=== PATIENT | male | born 1975 | race Caucasian/White ===

== ENCOUNTER → 2016-09-12 | Outpatient (CLI) | payer OTHER ==
--- NOTE | 2016-09-12 12:50 | XR ---
EXAMINATION TYPE: XR knee limited bilateral DATE OF EXAM ORDERED: 09/12/2016 HISTORY: M25.561, M25.562 bilateral knee pain. COMPARISON: Previous study of the right knee dated 10/01/2014. FINDINGS: There are remodeling changes in all 3 compartments of both knees. There is mild medial harshad nt space loss present bilaterally. There is some chondrocalcinosis present on the right. No definite joint effusion is seen. Loose body in the suprapatellar bursa on the right has enlarged slightly from 2.36 cm to 2.7 cm. IMPRESSION: 1. OSTEOARTHRITIS. 2. PROBABLE LOOSE BODY IN THE SUPRAPATELLAR BURSA ON THE RIGHT.
== END | disposition home or self-care (01) ==
LOC: RADXRMAIN 11:35
PROVIDERS: ATTEND Family Medicine
DX: M17.0 Bilateral primary osteoarthritis of knee (principal)

== ENCOUNTER → 2017-04-16 | Outpatient (CLI) | payer OTHER ==
--- NOTE | 2017-04-16 12:03 | XR ---
EXAMINATION TYPE: XR chest 2V DATE OF EXAM: 04/16/2017 COMPARISON: NONE HISTORY: Anxiety attack. History of asthma. Chest pain. TECHNIQUE: Frontal and lateral views of the chest are obtained. FINDINGS: There is no focal air space opacity, pleural effusion, or pneumothorax seen. The cardiac silhouette size is within normal limits. The osseous structures are intact. IMPRESSION: No acute cardiopulmonary process.
== END | disposition home or self-care (01) ==
LOC: RADMRIMAIN 11:31
PROVIDERS: ATTEND Family Medicine
DX: R06.02 Shortness of breath (principal); M19.90 Unspecified osteoarthritis, unspecified site
CPT/HCPCS: 71046

== ENCOUNTER 2018-06-01 14:12 | Emergency (ER) | payer MEDICARE, OTHER ==
[2018-06-01 15:06] VITALS: BP 149/85; RESP 18; TEMP 98.4
[2018-06-01] MEDS ORDERED: MECLIZINE 25 MG TAB PO STA (15:24)
[2018-06-01] MEDS ORDERED: DIAZEPAM 5 MG/ML 2 ML INJ IVP STA (15:24)
[2018-06-01] MEDS ORDERED: ONDANSETRON 4 MG/2 ML VIAL IVP STA (15:25)
--- NOTE | 2018-06-01 16:00 | ED ---
General Adult HPI - General Source: EMS, RN notes reviewed Mode of arrival: EMS Limitations: physical limitation <Tk Patel - Last Filed: 06/01/18 17:02> <Javi Pfeiffer - Last Filed: 06/01/18 19:24> - General Chief complaint: Dizziness Stated complaint: Dizziness Time Seen by Provider: 06/01/18 14:15 - History of Present Illness Initial comments: This is a 43-year-old male who presents emergency department stating that he is very dizzy and the dizziness is made him nauseous and vomited times one. Patient states he was in the bathroom bent over to pull up his pants and when he did he stood up and everything was spinning. Patient states he has never had an episode like this before per patient states anytime he moves his head the dizziness is worse. Patient denies any ringing in his ears or any deafness. Patient denies any headache. Patient denies any focal numbness or weakness. Patient denies any visual disturbance speech. Patient denies any chest pain palpitations difficulty breathing shortness breath per patient denies any recent fever chills or cough per patient denies any recent upper respiratory infections. Patient denies any abdominal pain patient denies nausea vomiting diarrhea. Patient states he sits in bed still he is not as dizzy but if he moves his head he gets very dizzy and nauseated. (Tk Patel) - Related Data Home Medications Medication Instructions Recorded Confirmed Acetaminophen Tab [Tylenol Tab] 1,000 mg PO Q6HR 06/01/18 06/01/18 Cholecalciferol (Vitamin D3) 2,000 unit PO DAILY 06/01/18 06/01/18 [Vitamin D3] Levothyroxine Sodium [Synthroid] 88 mcg PO DAILY 06/01/18 06/01/18 Previous Rx's Medication Instructions Recorded Meclizine [Antivert] 25 mg PO TID #20 tab 06/01/18 Allergies Allergy/AdvReac Type Severity Reaction Status Date / Time No Known Allergies Allergy Verified 06/01/18 15:07 Review of Systems ROS Other: All systems not noted in ROS Statement are negative. <Tk Patel - Last Filed: 06/01/18 17:02> ROS Other: All systems not noted in ROS Statement are negative. <Javi Pfeiffer - Last Filed: 06/01/18 19:24> ROS Statement: Those systems with pertinent positive or pertinent negative responses have been documented in the HPI. 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 History of Any Multi-Drug Resistant Organisms: None Reported Past Surgical History: Joint Replacement, Orthopedic Surgery Additional Past Surgical History / Comment(s): hypothyroidism Past Psychological History: No Psychological Hx Reported Smoking Status: Never smoker Past Alcohol Use History: Occasional Past Drug Use History: None Reported <Tk Patel - Last Filed: 06/01/18 17:02> General Exam Limitations: physical limitation <Tk Patel - Last Filed: 06/01/18 17:02> <Javi Pfeiffer - Last Filed: 06/01/18 19:24> - General Exam Comments Initial Comments: GENERAL: Patient is well-developed and well-nourished. Patient is nontoxic and well- hydrated and is in moderate distress. ENT: Neck is soft and supple. No significant lymphadenopathy is noted. Oropharynx is clear. Moist mucous membranes. Neck has full range of motion without eliciting any pain. EYES: The sclera were anicteric and conjunctiva were pink and moist. Extraocular movements were intact and pupils were equal round and reactive to light. Eyelids were unremarkable. PULMONARY: Unlabored respirations. Good breath sounds bilaterally. No audible rales rhonchi or wheezing was noted. CARDIOVASCULAR: There is a regular rate and rhythm without any murmurs gallops or rubs. ABDOMEN: Soft and nontender with normal bowel sounds. No palpable organomegaly was noted. There is no palpable pulsatile mass. SKIN: Skin is clear with no lesions or rashes and otherwise unremarkable. NEUROLOGIC: Patient is alert and oriented x3. Cranial nerves II through XII are grossly intact. Motor and sensory are also intact. Normal speech, volume and content. Symmetrical smile. Cerebellar testing finger to nose bilaterally is normal MUSCULOSKELETAL: Normal extremities with adequate strength and full range of motion. No lower extremity swelling or edema. No calf tenderness. LYMPHATICS: No significant lymphadenopathy is noted PSYCHIATRIC: Normal psychiatric evaluation. (Tk Patel) Course <Tk Patel - Last Filed: 06/01/18 17:02> <Javi Pfeiffer - Last Filed: 06/01/18 19:24> Vital Signs 06/01/18 14:58 Temperature 98.4 F Pulse Rate 73 Respiratory 18 Rate Blood Pressure 149/85 O2 Sat by Pulse 99 Oximetry - Reevaluation(s) Reevaluation #1: 06/01/18 19:23 The patient was endorsed me by Dr. Patel is pending evaluation and response to Antivert. Patient is feeling much improved the presentation is consistent with benign positional vertigo outpatient we placed on appropriate medication is a follow-up with his doctor and return when necessary (Javi Pfeiffer) Medical Decision Making - Lab Data Result diagrams: 06/01/18 16:33 06/01/18 16:33 <Tk Patel - Last Filed: 06/01/18 17:02> - Lab Data Result diagrams: 06/01/18 16:33 06/01/18 16:33 <Javi Pfeiffer - Last Filed: 06/01/18 19:24> - Medical Decision Making EKG shows normal sinus rhythm at 70 bpm WI interval is on a 44 tresses 82 QT interval 34 QTC is 437. Patient's EKG shows no ST segment elevation or depression. Dr. Pfeiffer will take over the care of this patient at 5 PM (Tk Patel) - Lab Data Lab Results 06/01/18 06/01/18 06/01/18 Range/Units 16:33 16:33 16:33 WBC 11.2 H (3.8-10.6) k/uL RBC 5.49 (4.30-5.90) m/uL Hgb 15.1 (13.0-17.5) gm/dL Hct 48.9 (39.0-53.0) % MCV 89.1 (80.0-100.0) fL MCH 27.6 (25.0-35.0) pg MCHC 31.0 (31.0-37.0) g/dL RDW 15.1 (11.5-15.5) % Plt Count 186 (150-450) k/uL Neutrophils % 85 % Lymphocytes % 9 % Monocytes % 4 % Eosinophils % 1 % Basophils % 0 % Neutrophils # 9.6 H (1.3-7.7) k/uL Lymphocytes # 1.0 (1.0-4.8) k/uL Monocytes # 0.4 (0-1.0) k/uL Eosinophils # 0.1 (0-0.7) k/uL Basophils # 0.0 (0-0.2) k/uL Hypochromasia Slight PT 10.0 (9.0-12.0) sec INR 0.9 (<1.2) APTT 22.5 (22.0-30.0) sec Sodium 137 (137-145) mmol/L Potassium 4.7 (3.5-5.1) mmol/L Chloride 103 (98-107) mmol/L Carbon Dioxide 25 (22-30) mmol/L Anion Gap 9 mmol/L BUN 11 (9-20) mg/dL Creatinine 0.87 (0.66-1.25) mg/dL Est GFR (CKD-EPI)AfAm >90 (>60 ml/min/1.73 sqM) Est GFR (CKD-EPI)NonAf >90 (>60 ml/min/1.73 sqM) Glucose 203 H (74-99) mg/dL Calcium 8.9 (8.4-10.2) mg/dL Magnesium 2.1 (1.6-2.3) mg/dL Total Bilirubin 0.6 (0.2-1.3) mg/dL AST 25 (17-59) U/L ALT 41 (21-72) U/L Alkaline Phosphatase 110 (38-126) U/L Troponin I (0.000-0.034) ng/mL Total Protein 7.1 (6.3-8.2) g/dL Albumin 3.7 (3.5-5.0) g/dL 06/01/18 Range/Units 16:33 WBC (3.8-10.6) k/uL RBC (4.30-5.90) m/uL Hgb (13.0-17.5) gm/dL Hct (39.0-53.0) % MCV (80.0-100.0) fL MCH (25.0-35.0) pg MCHC (31.0-37.0) g/dL RDW (11.5-15.5) % Plt Count (150-450) k/uL Neutrophils % % Lymphocytes % % Monocytes % % Eosinophils % % Basophils % % Neutrophils # (1.3-7.7) k/uL Lymphocytes # (1.0-4.8) k/uL Monocytes # (0-1.0) k/uL Eosinophils # (0-0.7) k/uL Basophils # (0-0.2) k/uL Hypochromasia PT (9.0-12.0) sec INR (<1.2) APTT (22.0-30.0) sec Sodium (137-145) mmol/L Potassium (3.5-5.1) mmol/L Chloride (98-107) mmol/L Carbon Dioxide (22-30) mmol/L Anion Gap mmol/L BUN (9-20) mg/dL Creatinine (0.66-1.25) mg/dL Est GFR (CKD-EPI)AfAm (>60 ml/min/1.73 sqM) Est GFR (CKD-EPI)NonAf (>60 ml/min/1.73 sqM) Glucose (74-99) mg/dL Calcium (8.4-10.2) mg/dL Magnesium (1.6-2.3) mg/dL Total Bilirubin (0.2-1.3) mg/dL AST (17-59) U/L ALT (21-72) U/L Alkaline Phosphatase (38-126) U/L Troponin I <0.012 (0.000-0.034) ng/mL Total Protein (6.3-8.2) g/dL Albumin (3.5-5.0) g/dL Disposition <Tk Patel - Last Filed: 06/01/18 17:02> Is patient prescribed a controlled substance at d/c from ED?: No <Javi Pfeiffer - Last Filed: 06/01/18 19:24> Clinical Impression: Benign paroxysmal positional vertigo Disposition: HOME SELF-CARE Condition: Good Instructions (If sedation given, give patient instructions): Dizziness (ED), Benign Paroxysmal Positional Vertigo (ED) Prescriptions: Meclizine [Antivert] 25 mg PO TID #20 tab Referrals: Kevin Arceo DO [Primary Care Provider] - 1-2 days
--- NOTE | 2018-06-01 16:03 | XR ---
EXAMINATION TYPE: XR chest 2V DATE OF EXAM: 06/01/2018 COMPARISON: Chest radiograph 04/16/2017 HISTORY: Chest pain TECHNIQUE: Frontal and lateral views of the chest are obtained. FINDINGS: Exam is significantly limited secondary to patient body habitus. There is no focal air space opacity, pleural effusion, or pneumothorax seen. The cardiac silhouette size is within normal limits. The osseous structures are intact. IMPRESSION: Significantly limited exam secondary to body habitus. No obvious acute cardiopulmonary p rocess.
--- NOTE | 2018-06-01 16:25 | CT ---
EXAMINATION TYPE: CT brain wo con DATE OF EXAM: 06/01/2018 COMPARISON: None. HISTORY: pain CT DLP: 1176.4 mGycm. Automated Exposure Control for Dose Reduction was Utilized. TECHNIQUE: CT scan of the head is performed without contrast. FINDINGS: There is no acute intracranial hemorrhage, mass effect, or midline shift identified. The ventricles and sulci are within normal limits in size. The globes are intact and the visualized sin uses are clear. IMPRESSION: No acute intracranial hemorrhage, mass effect, or midline shift is seen.
[2018-06-01 16:50] LABS: Hypochromasia Slight
[2018-06-01 16:52] LABS: Basophils % (A) 0 %; Eosinophils # (A) 0.1 k/uL (0-0.7); Eosinophils % (A) 1 %; HCT 48.9 % (39.0-53.0); HGB 15.1 gm/dL (13.0-17.5); Lymphocytes % (A) 9 %; MCH 27.6 pg (25.0-35.0); MCV 89.1 fL (80.0-100.0); Mean Platelet Volume 8.7; Monocytes # (A) 0.4 k/uL (0-1.0); Monocytes % (A) 4 %; Neutrophils # (A) 9.6 k/uL (1.3-7.7); Neutrophils % (A) 85 %; Platelet Count 186 k/uL (150-450); RBC 5.49 m/uL (4.30-5.90); RDW 15.1 % (11.5-15.5); WBC 11.2 k/uL (3.8-10.6)
[2018-06-01 16:55] LABS: INR 0.9 (<1.2); Partial Thromboplastin Time 22.5 sec (22.0-30.0)
[2018-06-01 16:56] LABS: ALT 41 U/L (21-72); AST 25 U/L (17-59); Albumin 3.7 g/dL (3.5-5.0); Alkaline Phosphatase 110 U/L (38-126); Anion Gap 9 mmol/L; Blood Urea Nitrogen 11 mg/dL (9-20); Calcium 8.9 mg/dL (8.4-10.2); Carbon Dioxide 25 mmol/L (22-30); Chloride 103 mmol/L (98-107); Glucose 203 mg/dL (74-99); Magnesium 2.1 mg/dL (1.6-2.3); Potassium 4.7 mmol/L (3.5-5.1); Sodium 137 mmol/L (137-145); Total Bilirubin 0.6 mg/dL (0.2-1.3); Total Protein 7.1 g/dL (6.3-8.2)
[2018-06-01] MEDS ORDERED: SODIUM BICARB 8.4% 50 ML SYR (1 MEQ/ML) IV ONE (19:21)
[2018-06-01] MEDS ORDERED: ONDANSETRON 4 MG ODT STARTER PACK 2 TAB BTL PO STA (20:01)
[2018-06-01 20:13] VITALS: PULSE 80
== END 2018-06-01 20:13 | disposition home or self-care (01) ==
LOC: EC 14:12
DX: H81.10 Benign paroxysmal vertigo, unspecified ear (principal); R11.2 Nausea with vomiting, unspecified; M19.90 Unspecified osteoarthritis, unspecified site; E03.9 Hypothyroidism, unspecified; Z79.890 Hormone replacement therapy; Z79.899 Other long term (current) drug therapy; Z96.649 Presence of unspecified artificial hip joint; Z53.8 Procedure and treatment not carried out for other reasons
CPT/HCPCS: 36415; 93005; 80053; 83735; 84484; 85025; 85610; 85730; 71046; 70450; 99285; 96374; 96375; J3360; J2405; S0119

== ENCOUNTER → 2019-03-13 | Outpatient (CLI) | payer MEDICARE ==
--- NOTE | 2019-03-13 10:10 | XR ---
EXAMINATION TYPE: XR chest 2V DATE OF EXAM: 03/13/2019 COMPARISON: NONE HISTORY: Shortness of breath. TECHNIQUE: Frontal and lateral views of the chest are obtained. FINDINGS: There is no focal air space opacity, pleural effusion, or pneumothorax seen. The cardiac silhouette size is upper limits of normal. The osseous structures are intact. Mild to moderate dege nerative change of the thoracic spine. IMPRESSION: No acute cardiopulmonary process.
== END | disposition home or self-care (01) ==
LOC: RADXRMAIN 09:46
PROVIDERS: ATTEND Family Medicine
DX: R06.02 Shortness of breath (principal)
CPT/HCPCS: 71046

== ENCOUNTER → 2020-03-24 | Outpatient (CLI) | payer MEDICARE ==
--- NOTE | 2020-03-24 15:25 | XR ---
EXAMINATION TYPE: XR chest 2V DATE OF EXAM: 03/24/2020 COMPARISON: 03/13/2019 HISTORY: Chest pain TECHNIQUE: Frontal and lateral views of the chest are obtained. FINDINGS: There is no focal air space opacity. No evidence for pneumothorax. No pleural effusion. The cardiac silhouette size is within normal limits. The osseous structures are grossly intact. IMPRESSION: 1. No acute cardiopulmonary process.
== END | disposition home or self-care (01) ==
LOC: RADXRYALE 14:38
PROVIDERS: ATTEND Family Medicine
DX: R06.02 Shortness of breath (principal)
CPT/HCPCS: 71046

== ENCOUNTER → 2021-08-09 | Outpatient (CLI) | payer MEDICARE ==
--- NOTE | 2021-08-09 09:16 | XR ---
EXAMINATION TYPE: XR chest 2V DATE OF EXAM: 08/09/2021 COMPARISON: Prior chest x-ray March 24, 2020 HISTORY: Pain and swelling. TECHNIQUE: Frontal and lateral views of the chest are obtained. FINDINGS: Matter few slightly suboptimal due to large body habitus. There is no suspicious new focal air space opacity, pleural effusion, or pneumothorax seen. The cardiac silhouette size is stable an d upper limits of normal. Bridging osteophytes in the thoracic spine are redemonstrated. IMPRESSION: No acute process. No significant change from prior.
--- NOTE | 2021-08-09 09:19 | US ---
EXAMINATION TYPE: US venous doppler duplex LE BI DATE OF EXAM: 08/09/2021 8:48 AM COMPARISON: NONE CLINICAL HISTORY: M79.606 PAIN IN LEG R60.9 EDEMA, R06.02 SOB. edema and pain bilateral legs SIDE PERFORMED: bilateral TECHNIQUE: The lower extremity deep venous system is examined utilizing real time linear array sonog laly with graded compression, doppler sonography and color-flow sonography. VESSELS IMAGED: Common Femoral Vein Deep Femoral Vein Greater Saphenous Vein * Femoral Vein Popliteal Vein Small Saphenous Vein * Proximal Calf Veins (* superficial vessels) Right Leg: extreme technical limitations due to patient's body habitus, morbidly obese. no evidenc e of DVT as visualized. unable to visualize lower femoral vein for compression Left Leg: extreme technical limitations due to patient's body habitus, morbidly obese. no evidence of DVT as visualized. unable to visualize mid or lower femoral vein for compression Grayscale, color doppler, spectral doppler imaging performed of the deep veins of the bilateral lower extremities. There is normal flow and vascular waveforms. IMPRESSION: Suboptimal study due to large body habitus. No convincing evidence for acute DVT in eithe r lower extremity.
== END | disposition home or self-care (01) ==
LOC: RADUSWWP 07:58
PROVIDERS: ATTEND Family Medicine
DX: R06.02 Shortness of breath (principal); M79.605 Pain in left leg; M79.604 Pain in right leg; R22.2 Localized swelling, mass and lump, trunk
CPT/HCPCS: 71046; 93970

== ENCOUNTER → 2021-09-13 | Outpatient (CLI) | payer MEDICARE | LOC: CPPFTMAIN 13:38 | PROVIDERS: ATTEND Family Medicine | DX: R06.02 Shortness of breath (principal) | CPT/HCPCS: 93005; 94060; 94726; 94729 ==

== ENCOUNTER → 2022-08-18 | Outpatient (CLI) | payer MEDICARE ==
--- NOTE | 2022-08-18 11:11 | XR ---
EXAMINATION TYPE: XR chest 2V DATE OF EXAM: 08/18/2022 11:05 AM COMPARISON: Chest radiographs from 08/09/2021 TECHNIQUE: XR chest 2V Frontal and lateral views of the chest. CLINICAL INDICATION:Male, 47 years old with history of R06.02 SHORTNESS OF BREATH; FINDINGS: Lungs/Pleura: There is no evidence of pleural effusion, focal consolidation, or pneumothorax. Pulmonary vascularity: Unremarkable. Heart/mediastinum: Cardiomediastinal silhouette is unremarkable. Musculoskeletal: No acute osseous pathology. Mild degenerative changes of the thoracic spine. IMPRESSION: No acute cardiopulmonary disease/process. No significant change from prior exam.
--- NOTE | 2022-08-18 11:58 | US ---
EXAMINATION TYPE: US carotid duplex BILAT DATE OF EXAM: 08/18/2022 COMPARISON: NONE CLINICAL INDICATION: Male, 47 years old with history of I65.23; stenosis TECHNIQUE: Carotid duplex ultrasound examination. Indirect Doppler criteria was utilized. FINDINGS: EXAM MEASUREMENTS: RIGHT: Peak Systolic Velocity (PSV) cm/sec ----- Right CCA: 107 ----- Right ICA: 109.9 ----- Right ECA: 98.2 ICA/CCA ratio: 1.0 RIGHT: End Diastole cm/sec ----- Right CCA: 29.9 ----- Right ICA: 31.4 ----- Right ECA: 15.4 LEFT: Peak Systolic Velocity (PSV) cm/sec ----- Left CCA: 197.6 ----- Left ICA: 120 ----- Left ECA: 141.7 ICA/CCA ratio: 0.6 LEFT: End Diastole cm/sec ----- Left CCA: 44.3 ----- Left ICA: 47.1 ----- Left ECA: 23.4 VERTEBRALS (direction of flow): Right Vertebral: Antegrade Left Vertebral: Antegrade Rhythm: Normal [employer] NOTES: No significant stenosis seen IMPRESSION: No ultrasound evidence for hemodynamically significant stenosis of bilateral internal carotid arterie s. Criteria for Assigning % of Stenosis / Diameter reduction (Estimation based on the indirect measurements of the internal carotid artery velocities (ICA PSV). 1. Normal (no stenosis)=ICA PSV < 125 cm/s: ratio < 2.0: ICA EDV<40 cm/s. 2. Less than 50% stenosis=ICA PSV < 125 cm/s: ratio < 2.0: ICA EDV<40 cm/s. 3. 50 to 69% stenosis=ICA PSV of 125 to 230 cm/s: ration 2.0 ? 4.0: ICA EDV 40-100 cm/s. 4. Greater than 70% stenosis to near occlusion= ICA PSV > 230 cm/s: ratio > 4.0: ICA EDV > 100 cm/s. 5. Near occlusion= ICA PSV velocities may be low or undetectable: variable ratio and ICA EDV. 6. Total occlusion=unable to detect flow.
--- NOTE | 2022-08-18 11:59 | US ---
EXAMINATION TYPE: US venous doppler duplex LE DATE OF EXAM: 08/18/2022 9:58 AM COMPARISON: NONE CLINICAL INDICATION: Male, 47 years old with history of M79.606 SWELLING LOWER LIMB,R22.43 PAIN LEG,I 65.23; pain exam limited due to body habitus. SIDE PERFORMED: Bilateral TECHNIQUE: The lower extremity deep venous system is examined utilizing real time linear array sonog laly with graded compression, doppler sonography and color-flow sonography. VESSELS IMAGED: Common Femoral Vein Deep Femoral Vein Greater Saphenous Vein * Femoral Vein Popliteal Vein Grayscale, color doppler, spectral doppler imaging performed of the deep veins of the lower extremiti es. There is normal flow, compressibility, vascular waveforms. Right Leg: Negative for DVT Left Leg: Negative for DVT IMPRESSION: No ultrasound evidence for deep venous thrombosis of the bilateral lower extremities.
--- NOTE | 2022-08-21 15:37 | US ---
EXAMINATION TYPE: US arterial LE single level DATE OF EXAM: 08/18/2022 10:36 AM CLINICAL INDICATION: Male, 47 years old with history of M79.606,R22.43, PAIN AND SWELLING IN LOWER LI MB; History of: Smoker: Previous Hypertension: no Diabetic: yes Hyperlipidemia: no TIA/CVA: no Previous Vascular Surgery: no CAD: no CT: no Vascular Ulcers: yes right Claudication: no Gangrene: no Doppler Waveforms: Right: Multiphasic Left: Multiphasic Ankle-Brachial Indices: Right: 1.38 Left: 1.10 Toe Brachial Indices: Right: 0.69 Left: 0.74 IMPRESSION: 1. Bilateral normal SONU. 2. Borderline normal bilateral TBI.
== END | disposition home or self-care (01) ==
LOC: RADUSWWP 09:05
PROVIDERS: ATTEND Family Medicine
DX: R22.43 Localized swelling, mass and lump, lower limb, bilateral (principal); M79.606 Pain in leg, unspecified; I65.23 Occlusion and stenosis of bilateral carotid arteries; R06.02 Shortness of breath; R06.2 Wheezing
CPT/HCPCS: 71046; 93880; 93922; 93970

== ENCOUNTER 2024-02-13 15:11 | Emergency (ER) | payer MEDICARE ==
[2024-02-13 15:20] VITALS: RESP 20
[2024-02-13] MEDS: LORazepam 0.5 MG TAB PO STA (16:00)
--- NOTE | 2024-02-13 16:02 | ED ---
General Adult HPI - General Chief complaint: Anxiety Stated complaint: anxiety Time Seen by Provider: 02/13/24 15:30 Source: patient, EMS, RN notes reviewed, old records reviewed Mode of arrival: EMS Limitations: no limitations - History of Present Illness Initial comments: Patient is a 48-year-old male presents emergency department complaining of anxiety. Patient had a panic attack starting yesterday due to the election. States that this occurs when he has significant stressors. States he is feeling improved however is still feeling somewhat anxious. Describes anxiety attack as feeling rage and anger and states he needs to shout and yell to get this aggressiveness and anxiety out. States that he did do this but is still having some symptoms today and presents for further evaluation. Past medical history remarkable for arthritis and diabetes. Is not on any medications for anxiety. States he does feel mostly improved at this time. No cardiac history. Presents for further evaluation. States the symptoms that occurred are typical for his panic attack/anxiety episodes.Denies chest pain, shortness of breath, fevers, chills, cough. - Related Data Home Medications Medication Instructions Recorded Confirmed Levothyroxine Sodium [Synthroid] 88 mcg PO DAILY 06/01/18 02/13/24 Furosemide [Lasix] 40 mg PO BID 02/13/24 02/13/24 Potassium Chloride ER [K-Dur 10] 10 meq PO BID 02/13/24 02/13/24 metFORMIN HCL 500 mg PO TID-W/MEALS PRN 02/13/24 02/13/24 Previous Rx's Medication Instructions Recorded LORazepam [Ativan] 0.5 mg PO HS PRN 3 Days #3 tab 02/13/24 Allergies Allergy/AdvReac Type Severity Reaction Status Date / Time No Known Allergies Allergy Verified 02/13/24 16:23 Review of Systems ROS Statement: Those systems with pertinent positive or pertinent negative responses have been documented in the HPI. Review of Systems: CONST: Denies fever EYES: Denies blurry vision ENT: Denies nasal congestion C/V: Denies Chest pain RESP: Denies shortness of breath GI: Denies abdominal pain : Denies dysuria SKIN: Denies rash. MSK: Denies joint pain. NEURO: Denies headache ROS Other: All systems not noted in ROS Statement are negative. 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 HEAD: Normal with no signs of head trauma. EYES: PERRLA, EOMI, conjunctiva normal, no discharge. Pupils 2 mm and equal bilaterally. ENT: Hearing grossly intact, normal oropharynx. RESPIRATORY: Clear breath sounds bilaterally. No wheezes, rales, or rhonchi. C/V: Regular rate and rhythm. S1 and S2 auscultated, peripheral pulses 2+ and intact throughout ABD: Abd is soft, nontender, nondistended EXT: No obvious deformity SKIN: No rashes or lesions observed on exposed skin. NEURO: Alert and oriented x 4. Limitations: no limitations Course Vital Signs 02/13/24 02/13/24 15:16 17:13 Temperature 98.2 F 98.4 F Pulse Rate 105 H 74 Respiratory 20 20 Rate Blood Pressure 142/77 147/88 O2 Sat by Pulse 95 99 Oximetry Medical Decision Making - Medical Decision Making Was pt. sent in by a medical professional or institution ( PA, [employer], urgent care, hospital, or penitentiary...) When possible be specific @ -No Did you speak to anyone other than the patient for history (EMS, parent, family, police, friend...)? What history was obtained from this source @ -No Did you review nursing and triage notes (agree or disagree)? Why? @ -I reviewed and agree with nursing and triage notes Were old charts reviewed (outside hosp., previous admission, EMS record, old EKG, old radiological studies, urgent care reports/EKG's, penitentiary records)? Report findings @ -No old charts were reviewed Differential Diagnosis (chest pain, altered mental status, abdominal pain women, abdominal pain men, vaginal bleeding, weakness, fever, dyspnea, syncope, headache, dizziness, GI bleed, back pain, seizure, CVA, palpatations, mental health, musculoskeletal)? @ -Panic attack, anxiety, this list is not all inclusive. EKG interpreted by me (3pts min.). @ -As above X-rays interpreted by me (1pt min.). @ -None done CT interpreted by me (1pt min.). @ -None done U/S interpreted by me (1pt. min.). @ -None done What testing was considered but not performed or refused? (CT, X-rays, U/S, labs)? Why? @ -None What meds were considered but not given or refused? Why? @ -None Did you discuss the management of the patient with other professionals (professionals i.e. , PA, [employer], lab, RT, psych nurse, family welfare social work professor, medical director/head team physician, teacher, chief technical officer, rn case manager)? Give summary @ -No Was smoking cessation discussed for >3mins.? @ -No Was critical care preformed (if so, how long)? @ -No Were there social determinants of health that impacted care today? How? (Homelessness, low income, unemployed, alcoholism, drug addiction, transportation, low edu. Level, literacy, decrease access to med. care, snf, rehab)? @ -No Was there de-escalation of care discussed even if they declined (Discuss DNR or withdrawal of care, Hospice)? DNR status @ -No What co-morbidities impacted this encounter? (DM, HTN, Smoking, COPD, CAD, Cancer, CVA, ARF, Chemo, Hep., AIDS, mental health diagnosis, sleep apnea, morbid obesity)? @ -None Was patient admitted / discharged? Hospital course, mention meds given and route, prescriptions, significant lab abnormalities, going to OR and other pertinent info. @ -Based on patient's presentation and physical exam, patient presents emergency department complaining of anxiety and panic type symptoms. States that this began yesterday during the election process and continued over to today. Vitals are currently within acceptable limits. States he is feeling improved but does believe all of his symptoms were very typical for his anxiety. Currently has no significant complaints and is resting comfortably. Did discuss with the patient we will obtain a screening EKG. Further workup if this shows any abnormalities. He was in agreement this plan. He will be given a small dose of Ativan as well. EKG shows no signs of acute ischemia. I discussed the results with the patient. He is feeling improved. He will be discharged home at this time. Patient was in agreement this plan. I will provide him with a few tablets of Ativan as a prescription and recommended follow-up with his PCP if he requires anxiety or depression medications at home. He was in agreement this plan. I will provide the patient with a prescription for Ativan. I instructed the patient to follow up with their PCP in the next 1-3 days. . I explained that the patient should return to the emergency department if they experience any worsening symptoms. Strict return precautions were discussed with the patient. The patient expressed understanding of these instructions. I answered all questions that the patient had. The patient was discharged home in good condition with their prescriptions and follow up information. Undiagnosed new problem with uncertain prognosis? @ -No Drug Therapy requiring intensive monitoring for toxicity (Heparin, Nitro, Insulin, Cardizem)? @ -No Were any procedures done? @ -No Diagnosis/symptom? @ -Anxiety Acute, or Chronic, or Acute on Chronic? @ -Acute on chronic Uncomplicated (without systemic symptoms) or Complicated (systemic symptoms)? @ -Uncomplicated Side effects of treatment? @ -No Exacerbation, Progression, or Severe Exacerbation? @ -No Poses a threat to life or bodily function? How? (Chest pain, [place], [place], pneumonia, PE, COPD, DKA, ARF, appy, cholecystitis, CVA, Diverticulitis, Homicidal, Suicidal, threat to staff... and all critical care pts) @ -Unlikely - EKG Data -: EKG Interpreted by Me EKG Comments: 12-lead Electrocardiogram Interpretation Note EKG was reviewed and interpreted by myself. 12-lead ECG performed at 1554 is interpreted by me as revealing sinus tachycardia at a rate of 100 beats per minute. [place] is normal. [place] interval is 143 ms, QRS duration is 95 ms, QTc is 388 ms.. There were no ST or T wave abnormalities to suggest myocardial ischemia or injury. R wave progression across the precordium was satisfactory. By my interpretation this EKG is non-diagnostic for acute ischemia. Disposition Clinical Impression: Acute anxiety Disposition: HOME SELF-CARE Condition: Good Instructions (If sedation given, give patient instructions): Generalized Anxiety Disorder (ED) Prescriptions: LORazepam [Ativan] 0.5 mg PO HS PRN 3 Days #3 tab PRN Reason: Anxiety Is patient prescribed a controlled substance at d/c from ED?: Yes When asked, does pt state using other controlled substances?: No If prescribed controlled substance>3 days was MAPS reviewed?: Prescribed <3 Days Referrals: Nonstaff,Physician [Primary Care Provider] - 1-2 days Forms: Area PCPs Time of Disposition: 17:00
[2024-02-13 17:16] VITALS: BP 147/88; PULSE 74; TEMP 98.4
== END 2024-02-13 17:15 | disposition home or self-care (01) ==
LOC: EC 15:11
DX: F41.0 Panic disorder [episodic paroxysmal anxiety] (principal); R00.0 Tachycardia, unspecified
CPT/HCPCS: 93005; 99283